=== PATIENT | male | born 1955 | race Caucasian/White ===

== ENCOUNTER 2021-10-08 08:09 | Outpatient (REF) | payer MEDICARE, BC, SELFPAY ==
--- NOTE | ~2021-10-08 | US_ITS ---
EXAMINATION: US ABDOMEN COMPLETE CLINICAL INFORMATION: History of hepatitis C. COMPARISON: Abdominal ultrasound 05/02/2016. TECHNIQUE: Real-time imaging of the abdominal viscera. FINDINGS: PANCREAS: The pancreas is obscured by overlying gas. ABDOMINAL AORTA: The visualized proximal and mid abdominal aorta has normal caliber. INFERIOR VENA CAVA: Visualized portions are normal. LIVER: The liver is normal in size. The liver contour is normal. The liver has increased echogenicity. No focal hepatic lesion. There is no intrahepatic biliary duct dilatation seen. GALLBLADDER: Normal. The gallbladder is physiologically distended without evidence of stones, sludge, polyps, wall thickening or pericholecystic fluid. COMMON BILE DUCT: Normal in caliber measuring 0.3 cm in diameter. RIGHT KIDNEY: No hydronephrosis or renal calculi. The kidney measures 12.1 cm in maximum dimension. There is an anechoic cyst measuring 6.3 x 5.0 x 6.2 cm. LEFT KIDNEY: Normal. No hydronephrosis. No renal calculi or focal parenchymal lesions. The kidney measures 11.4 cm in maximum dimension. SPLEEN: Normal. The spleen measures 10.9 cm in maximum dimension. FREE FLUID: None. US/US abdomen complete IMPRESSION: Simple anechoic cyst upper pole right kidney measuring 6.3 cm. Previously it measured 4.1 cm and appeared bilobed. Mild diffuse hepatic steatosis. No focal lesion seen.
== END 2021-10-08 08:10 | disposition home or self-care (01) ==
LOC: HO.US 08:09
PROVIDERS: PCP Pediatrics Pediatric Endocrinology; Visit Provider Internal Medicine
DX: Z86.19 Personal history of other infectious and parasitic diseases (principal)
CPT/HCPCS: 76700

== ENCOUNTER 2021-10-10 08:55 | Day surgery (SDC) | payer MEDICARE, SELFPAY ==
[2021-10-03 14:19] VITALS: BMI 25.8
[2021-10-04 12:15] VITALS: BMI 24.3
--- NOTE | 2021-10-09 09:04 | HO.ANESPROP2 ---
Documented by User: Mirela Umanzor NP 10/09/21 09:08 HPI - Anesthesia Eval Consult details Narrative: 66yo M for Colonoscopy REPLACED BY [facility] Past Medical History Medical History (Updated 10/09/21 @ 09:07 by Mirela Umanzor NP) Chronic hyponatremia History of atrial fibrillation History of blood transfusion History of seizures Hx of fracture of patella Hx of hepatitis C Low back pain Renal cyst Seasonal allergies Surgical History Surgical History (Updated 10/04/21 @ 12:07 by Danielle Rawls RN) History of liver biopsy History of surgery on arm Hx of colonoscopy Hx of eye surgery Social History Social History Are you a primary health care facility administrator to a significant other at home: No Do you presently have visiting nurse or other home services: No Patient Tobacco Use Status: Former Tobacco user Quit Date: 1991 Tobacco use type: Cigarette Use of substances other than those prescribed or required for medical reasons: No Are you DNR?: No Advance Directives: No Advance Directives Information Provided: Yes Advance Directives on File: No Meds Allergies Allergy/AdvReac Type Severity Reaction Status Date / Time No Known Allergies Allergy Verified 10/04/21 12:09 [No Known Allergies*] Home Medications Medication Instructions Recorded Confirmed Last Taken Type carbamazepine 200 mg tablet 200 mg PO BID 10/03/21 10/04/21 Unknown History levetiracetam 500 mg tablet 2,000 mg PO BID 10/03/21 10/04/21 Unknown History metoprolol succinate 25 mg 25 mg PO DAILY 10/04/21 10/04/21 Unknown History tablet,extended release 24 hr Exam Exam Date and Time: October 09, 2021 0904 Height,Weight and Vital Signs: Height 5 ft 10 in Weight 77.111 kg Assessment and Plan Assessment Anesthesia Assessment: Chart Reviewed Documented by User: Ramiro Giordano 10/10/21 10:09 REPLACED BY [facility] Past Medical History Medical History (Updated 10/09/21 @ 09:07 by Mirela Umanzor NP) Chronic hyponatremia History of atrial fibrillation History of blood transfusion History of seizures Hx of fracture of patella Hx of hepatitis C Low back pain Renal cyst Seasonal allergies Functional capacity: independent ambulation Family History Family history of problems with anesthesia: No Surgical History Surgical History (Updated 10/04/21 @ 12:07 by Danielle Rawls RN) History of liver biopsy History of surgery on arm Hx of colonoscopy Hx of eye surgery History of Problems with Anesthesia: No Social History Social History Are you a primary health care facility administrator to a significant other at home: No Do you presently have visiting nurse or other home services: No Patient Tobacco Use Status: Former Tobacco user Quit Date: 1991 Tobacco use type: Cigarette Use of substances other than those prescribed or required for medical reasons: No Are you DNR?: No Advance Directives: No Advance Directives Information Provided: Yes Advance Directives on File: No Meds Allergies Allergy/AdvReac Type Severity Reaction Status Date / Time No Known Allergies Allergy Verified 10/04/21 12:09 [No Known Allergies*] Home Medications Medication Instructions Recorded Confirmed Last Taken Type carbamazepine 200 mg tablet 200 mg PO BID 10/03/21 10/04/21 Unknown History levetiracetam 500 mg tablet 2,000 mg PO BID 10/03/21 10/04/21 Unknown History metoprolol succinate 25 mg 25 mg PO DAILY 10/04/21 10/04/21 Unknown History tablet,extended release 24 hr Exam Airway Mallampati Class: II TM Dist: >3cm Neck ROM: Full Denture: Upper Loose/Missing/Broken Teeth: Yes (Loose , poor dentation ) Heart: rrr Lungs: bl breath sounds Assessment and Plan Final Anesthetic Review Family History of Problems with Anesthesia: No History of Problems with Anesthesia: No NPO: Yes ASA Class: II Final Preanesthetic Review: Meds/Allgs Chart Reviewed and Anes Risks/Benef Reviewed Patient Risk: Intermediate Procedure Risk: Intermediate Anesthetic Plan Anesthetic Plan: MAC: Disposition: Standard PACU
[2021-10-10 10:11] VITALS: BP 155/77; PULSE 48; RESP 16; TEMP 36.4; O2SAT 100
[2021-10-10] MEDS: Lactated Ringers 1,000 ML 100 ML IVCONT (10:18)
[2021-10-10 12:10] VITALS: BP 107/60; PULSE 48; RESP 20; TEMP 36.6; O2SAT 100
--- NOTE | 2021-10-10 12:12 | P.BOP_ITS ---
Brief Operative Note Date of Service: 10/10/21 Pre-op diagnosis: Screening Post-op diagnosis: other (Diverticulosis) Procedure: Colonoscopy to the cecum and TI Surgeon: Yannick Felix Anesthesia: MAC Was an Quality Assurance Project Manager used for this Procedure?: No Estimated blood loss (mL): 0 Pathology: none sent Condition: stable Disposition: PACU
[2021-10-10 12:25] VITALS: BP 131/65; PULSE 45; RESP 17; TEMP 36.6; O2SAT 100
--- NOTE | 2021-10-10 12:59 | OP_ITS ---
SURGEON: Yannick Felix MD INDICATIONS: The patient presents for evaluation of colorectal cancer screening and personal history of tubular adenoma of the colon. Full consent was obtained from him for this, including risks of bleeding and perforation. PREOPERATIVE DIAGNOSIS: POSTOPERATIVE DIAGNOSIS: PROCEDURE PERFORMED: Colonoscopy to cecum and terminal ileum. ESTIMATED BLOOD LOSS: COMPLICATIONS: ANESTHESIA: Monitored anesthesia care. ASSISTANTS: SPECIMENS: PREOPERATIVE DIAGNOSES: Colorectal cancer screening and personal history of tubular adenoma of the colon. POSTOPERATIVE DIAGNOSES: Colorectal cancer screening, personal history of tubular adenoma of the colon, diverticulosis and internal hemorrhoids. DESCRIPTION OF PROCEDURE: The patient was placed in the left lateral decubitus position. The digital rectal exam revealed no abnormalities. The Olympus video pediatric colonoscope was entered into the rectum and advanced easily to the cecum. Once in the cecum, I did identify normal-appearing cecal pouch with appendiceal orifice and a normal-appearing ileocecal valve. The terminal ileum was cannulated and appeared normal. The scope was withdrawn back in the colon. The entire cecum and ileocecal valve appeared normal. The scope was slowly withdrawn assessing all mucosal surfaces carefully. Preparation was for the most part good, although there were some areas of some liquid stool, which had to be irrigated and suctioned away allowing good visualization overall. I did not visualize any sign of polyps, colitis, nor angiodysplasia. There was a mild amount of sigmoid diverticulosis. In the rectum, scope was retroflexed visualizing internal hemorrhoids, but no other pathology. The rectal mucosa appeared normal. Scope was straightened and withdrawn from the patient. He tolerated the procedure well and was returned to the recovery area in stable condition. IMPRESSION: 1. Mild diverticulosis. 2. Small internal hemorrhoids. PLAN: I would recommend a repeat colonoscopy in 5 years for further screening. I would recommend that he see me in the office in 1 or 2 years for followup in regard to his previous history of hepatitis C. A liver ultrasound done earlier this week describes a normal-appearing liver without any sign of mass and no sign of any other significant findings other than a benign-appearing right renal cyst. MD ESTEPHANIE Erwin/VIVIAN / [id number]
== END 2021-10-10 13:00 | disposition home or self-care (01) ==
PROVIDERS: PCP Internal Medicine; Visit Provider Internal Medicine
PROC: 0DJD8ZZ Inspection of Lower Intestinal Tract, Via Natural or Artificial Opening Endoscopic (ICD-10-PCS; CPT 45378; principal; 2021-10-10 10:10)
DX: Z12.11 Encounter for screening for malignant neoplasm of colon (principal); Z86.010 Personal history of colon polyps; K57.30 Diverticulosis of large intestine without perforation or abscess without bleeding; K64.8 Other hemorrhoids; Z86.19 Personal history of other infectious and parasitic diseases; I48.92 Unspecified atrial flutter; Z79.01 Long term (current) use of anticoagulants; G40.909 Epilepsy, unspecified, not intractable, without status epilepticus; N28.1 Cyst of kidney, acquired; Z79.899 Other long term (current) drug therapy; Z87.891 Personal history of nicotine dependence
CPT/HCPCS: G0105